=== PATIENT | male | born 1995 | race Hispanic/Latino ===

== ENCOUNTER 2019-12-09 | Emergency (ER) | payer BC ==
[~2019-12-09] MED LIST: NAPROSYN250 MG PO; NO HOME MEDS; ULTRAM50 MG OR
[2019-12-09] MEDS ORDERED: MEDDOSEPAK PO (15:13)
[2019-12-09] MEDS ORDERED: IPRATROPIU0.5 MG/3 M IN (15:13)
== END 2019-12-09 15:45 | disposition home or self-care (01) | DRG 203 ==
DX: J45.901 Unspecified asthma with (acute) exacerbation (principal)

== ENCOUNTER 2023-01-12 07:28 | Day surgery (SDC) | payer BC ==
[~2023-01-12] VITALS: Ht 165.1 cm; Wt 84.8 kg
[~2023-01-12 07:28] MED LIST changes: +CARAFATE1 GM PO; +DOXYCYCL HYC100 MG PO; +FAMOTIDINE20 M3 PO; +IPRATROPIU0.5 MG/3 M IN; +MEDDOSEPAK PO; +MUPIROCIN2 % EX; +OMEPRAZOLE DR40 MG PO; +OMEPRAZOLE20 MG PO; +PROVENTIL HFA IN
[2023-01-12 10:08] VITALS: BP 108/74
== END 2023-01-12 10:29 | disposition home or self-care (01) | DRG 392 ==
LOC: ENDO 07:28 → ORM 10:45 → ENDO 10:45
PROVIDERS: ATTEND Surgery
PROC: 0DB78ZX Excision of Stomach, Pylorus, Via Natural or Artificial Opening Endoscopic, Diagnostic (ICD-10-PCS; principal; 2023-01-12)
DX: K29.50 Unspecified chronic gastritis without bleeding (principal); K21.9 Gastro-esophageal reflux disease without esophagitis; Z79.899 Other long term (current) drug therapy